=== PATIENT | female | born 1945 | race Caucasian/White ===

== ENCOUNTER → 2019-02-08 07:39 | Outpatient (CLI) | payer MEDICARE, SELFPAY ==
--- NOTE | 2019-02-08 | DI.MG.S_ITS ---
BILATERAL DIGITAL SCREENING MAMMOGRAM 3D/2D WITH CAD: 02/08/2019 CLINICAL: Routine screening. Family history of breast cancer. Comparison is made to exams dated: 11/30/2017 mammogram, 06/16/2017 mammogram, and 12/08/2016 mammogram - [facility]. The tissue of both breasts is heterogeneously dense. This may lower the sensitivity of mammography. Current study was also evaluated with a Computer Aided Detection (CAD) system. No significant masses, calcifications, or other findings are seen in either breast. There has been no significant interval change. IMPRESSION: NEGATIVE There is no mammographic evidence of malignancy. A 1 year screening mammogram is recommended. This exam was interpreted at Station ID: [id number]. NOTE: For mammograms, a report in lay terms will be sent to the patient. Approximately 15% of breast malignancies will not be visualized mammographically. In the management of a palpable breast mass, a negative mammogram must not discourage biopsy of a clinically suspicious lesion. Electronically Signed By: Harleen leone/chucho:02/08/2019 11:53:46 letter sent: Normal Exam ACR BI-RADS Category 1: Negative 3341F
[2019-02-08 08:31] LABS: Add Manual Diff / Slide Review NO; Basophils Absolute Auto 0 /uL (0-100); Basophils Percent Auto 0.4 % (0-2); Eosinophils Absolute Auto 300 /uL (0-450); Eosinophils Percent Auto 5.4 % (2-4); Hematocrit 44.4 % (36-46); Hemoglobin 15.2 g/dL (12.0-16.0); Lymphocytes Absolute Auto 2400 /uL (1100-4500); Lymphocytes Percent Auto 43.1 % (25-40); Mean Corpuscular HGB Conc 34.3 % (30-36); Mean Corpuscular Hemoglobin 32.7 PG (26-34); Mean Corpuscular Volume 95.6 fL (80-100); Monocytes Absolute Auto 600 /uL (0-900); Monocytes Percent Auto 10.4 % (3-14); Neutrophils Absolute Auto 2200 /uL (1500-7000); Neutrophils Percent Auto 40.7 % (50-75); Platelet Count 404 X10^3/uL (150-400); Red Blood Cell Count 4.64 X10^6/uL (4.0-5.2); Red Cell Distribution Width 13.6 % (11.6-14.8); White Blood Cell Count 5.5 X10^3/uL (4.5-11.0)
[2019-02-08 09:42] LABS: Alanine Aminotransferase 21 IU/L (9-52); Albumin 4.7 g/dL (3.5-5.0); Albumin Globulin Ratio 1.6 (1.0-2.8); Alkaline Phosphatase 68 U/L (38-126); Aspartate Aminotransferase 29 IU/L (14-36); BUN Creatinine Ratio 18.6 (6-22); Bilirubin Total 0.8 mg/dL (0.2-1.3); Blood Urea Nitrogen 13 mg/dL (7-17); Calcium 10.2 mg/dL (8.4-10.2); Carbon Dioxide 29 mmol/L (22-32); Chloride 95 mmol/L (98-107); Cholesterol 242 mg/dL (140-199); Estimated Glomerular Filt Rate > 60.0 mL/min (>60); Glucose 89 mg/dL (80-110); HEMOLYSIS < 15 (0-50); Potassium 5.3 mmol/L (3.4-5.1); Sodium 135 mmol/L (137-145); Total Protein 7.7 g/dL (6.3-8.2); Triglycerides 70 mg/dL (35-150)
[2019-02-08 09:52] LABS: HDL Cholesterol 115 mg/dL (40-60); LDL Cholesterol Calculated 113 mg/dL (<100)
[2019-02-08 10:01] LABS: Free T4, Direct Thyroxine 1.06 ng/dL (0.78-2.19)
[2019-02-08 10:15] LABS: Thyroid Stimulating Hormone 2.08 uIU/mL (0.47-4.68)
== END ==
PROVIDERS: Visit Provider Physician Assistant
DX: Z12.31 Encounter for screening mammogram for malignant neoplasm of breast (principal); Z80.3 Family history of malignant neoplasm of breast; E78.5 Hyperlipidemia, unspecified; R00.2 Palpitations
CPT/HCPCS: 36415; 77063; 77067; 80053; 80061; 84439; 84443; 85025

== ENCOUNTER → 2019-04-18 16:07 | Outpatient (CLI) | payer MEDICARE, SELFPAY ==
--- NOTE | 2019-04-18 | DI.RAD.S_ITS ---
PROCEDURE: XR KNEE LT 1TO2V INDICATIONS: ARTHRALGIA LEFT KNEE TECHNIQUE: 2 views of the knee were acquired. COMPARISON: None. FINDINGS: Bones: No fractures or dislocations. No suspicious bony lesions. Scattered degenerative subchondral sclerosis and spurring. . Mild narrowing of the medial and lateral joint spaces. There is severe narrowing of the patellofemoral joint Soft tissues: No joint effusion. No suspicious soft tissue calcifications. IMPRESSION: Left knee joint degeneration as above. Dictated by: Bharat Jolly M.D. on 04/18/2019 at 16:54 Approved by: Bharat Jolly M.D. on 04/18/2019 at 16:55
== END ==
PROVIDERS: PCP Physician Assistant; Visit Provider Internal Medicine
DX: M17.12 Unilateral primary osteoarthritis, left knee (principal)
CPT/HCPCS: 73560

== ENCOUNTER → 2019-06-02 16:24 | Outpatient (CLI) | payer MEDICARE, SELFPAY ==
--- NOTE | 2019-06-02 | DI.RAD.S_ITS ---
PROCEDURE: XR FOOT RT MIN 3V INDICATIONS: Great toe pain, swelling, redness TECHNIQUE: 3 views of the foot were acquired. COMPARISON: None. FINDINGS: Bones: No fractures or dislocations. No suspicious bony lesions. Severe first MTP joint degeneration with prominent dorsal osteophyte formation and sclerosis. There is [id number] appearance. Diffuse interphalangeal joint aeration, most pronounced at the fourth toe. Plantar calcaneal spurring. Soft tissues: No tibiotalar joint effusion. Achilles tendon appears normal. IMPRESSION: Severe first MTP joint degeneration. Prominent dorsal osteophyte formation raising possibility of hallux rigidus. Dictated by: Bharat Jolly M.D. on 06/02/2019 at 17:12 Approved by: Bharat Jolly M.D. on 06/02/2019 at 17:14
== END ==
PROVIDERS: PCP Physician Assistant; Visit Provider Physician Assistant
DX: M79.674 Pain in right toe(s) (principal); M19.071 Primary osteoarthritis, right ankle and foot
CPT/HCPCS: 73630

== ENCOUNTER → 2019-12-12 13:35 | Outpatient (ROUT) | payer MEDICARE, SELFPAY ==
[2019-12-12 14:10] LABS: Add Manual Diff / Slide Review NO; Basophils Absolute Auto 100 /uL (0-100); Basophils Percent Auto 1.3 % (0-2); Eosinophils Absolute Auto 100 /uL (0-450); Hematocrit 43.8 % (36-46); Hemoglobin 14.8 g/dL (12.0-16.0); Lymphocytes Absolute Auto 1200 /uL (1100-4500); Lymphocytes Percent Auto 17.3 % (25-40); Mean Corpuscular HGB Conc 33.7 % (30-36); Mean Corpuscular Hemoglobin 32.3 PG (26-34); Mean Corpuscular Volume 95.9 fL (80-100); Monocytes Absolute Auto 1000 /uL (0-900); Monocytes Percent Auto 14.3 % (3-14); Neutrophils Absolute Auto 4600 /uL (1500-7000); Neutrophils Percent Auto 65.1 % (50-75); Platelet Count 421 X10^3/uL (150-400); Red Blood Cell Count 4.57 X10^6/uL (4.0-5.2); Red Cell Distribution Width 13.6 % (11.6-14.8); White Blood Cell Count 7.1 X10^3/uL (4.5-11.0)
[2019-12-12 14:27] LABS: Alanine Aminotransferase 19 IU/L (<35); Albumin 4.5 g/dL (3.5-5.0); Albumin Globulin Ratio 1.5 (1.0-2.8); Alkaline Phosphatase 91 U/L (38-126); Aspartate Aminotransferase 37 IU/L (14-36); BUN Creatinine Ratio 11.7 (6-22); Bilirubin Total 1.2 mg/dL (0.2-1.3); Blood Urea Nitrogen 7 mg/dL (7-17); Carbon Dioxide 26 mmol/L (22-32); Chloride 96 mmol/L (98-107); Cholesterol 222 mg/dL (140-199); Estimated Glomerular Filt Rate > 60.0 mL/min (>60); Globulin 3.1 g/dL (1.7-4.1); Glucose 106 mg/dL (80-110); HDL Cholesterol 96 mg/dL (40-60); HEMOLYSIS 23 (0-50); LDL Cholesterol Calculated 112 mg/dL (<100); Potassium 4.8 mmol/L (3.4-5.1); Sodium 133 mmol/L (137-145); Total Protein 7.6 g/dL (6.3-8.2); Triglycerides 70 mg/dL (35-150)
[2019-12-12 14:41] LABS: Vitamin D 25 Hydroxy (D3) 47.6 ng/mL (30.0-100.0)
== END ==
PROVIDERS: PCP Physician Assistant; Visit Provider Physician Assistant
DX: E78.5 Hyperlipidemia, unspecified (principal); E55.9 Vitamin D deficiency, unspecified
CPT/HCPCS: 80053; 80061; 82306; 85025

== ENCOUNTER → 2019-12-22 12:58 | Outpatient (CLI) | payer MEDICARE, SELFPAY ==
--- NOTE | 2019-12-22 | DI.MG.S_ITS ---
BILATERAL DIGITAL DIAGNOSTIC MAMMOGRAM 3D/2D: 12/22/2019 CLINICAL: Left nipple inversion. Comparison is made to exams dated: 02/08/2019 mammogram - [facility], 11/30/2017 mammogram, and 06/16/2017 mammogram - [facility]. The tissue of both breasts is heterogeneously dense. This may lower the sensitivity of mammography. There is an equal density asymmetry in the left breast central to the nipple in the retroareolar region. This correlates with area of clinical concern. There is associated nipple inversion without associated architectural distortion. Of note, this asymmetry has waxed and waned in density over the years as well as presence of nipple inversion. No other significant masses, calcifications, or other findings are seen in either breast. IMPRESSION: INCOMPLETE: NEEDS ADDITIONAL IMAGING EVALUATION The equal density asymmetry in the retroareolar left breast is indeterminate. An ultrasound is recommended for further evaluation and is scheduled to immediately follow this study. There is no abnormality seen in the left axilla to correspond with the area of clinical concern and palpable abnormality indicated by triangular marker in the left axilla, however, ultrasound is recommended which is scheduled to immediately follow this examination. This exam was interpreted at Station ID: [id number]. NOTE: For mammograms, a report in lay terms will be sent to the patient. Approximately 15% of breast malignancies will not be visualized mammographically. In the management of a palpable breast mass, a negative mammogram must not discourage biopsy of a clinically suspicious lesion. Electronically Signed By: Luis Quezada M.D. aty/:12/22/2019 14:56:25 ACR BI-RADS Category 0: Incomplete 3340F
--- NOTE | 2019-12-22 | DI.US.S_ITS ---
ULTRASOUND OF LEFT BREAST AND AXILLA: 12/22/2019 CLINICAL: Inverted nipple. Comparison is made to exams dated: 12/22/2019 mammogram, 02/08/2019 mammogram - [facility], 11/30/2017 mammogram, 06/16/2017 mammogram, 12/08/2016 mammogram, and 11/11/2015 mammogram - [facility]. Color flow and real-time ultrasound of the left breast axilla were performed. Castellanos scale images of the real-time examination were reviewed. There is no sonographic abnormality seen central to the nipple in the retroareolar region to correlate with mammographic finding of concern. No disturbed parenchymal echotexture. No significant abnormalities were seen sonographically in the left axilla, specifically at the area of palpable concern. IMPRESSION: PROBABLY BENIGN There is no abnormality seen in the left axilla to correspond with the area of clinical concern and palpable abnormality indicated by triangular marker in the left axilla or in the retroareolar left breast, however, clinical followup is recommended for persistent or worsening symptoms. A follow-up left mammogram and an ultrasound in 6 months is recommended to demonstrate stability. This exam was interpreted at Station ID: [id number]. Electronically Signed By: Luis Quezada M.D. aty/:12/26/2019 23:43:20 letter sent: Followup Recommended Ultrasound BI-RADS: 3 Probably benign
== END ==
PROVIDERS: PCP Physician Assistant; Referring Provider Physician Assistant; Visit Provider Physician Assistant
DX: R92.8 Other abnormal and inconclusive findings on diagnostic imaging of breast (principal); N64.59 Other signs and symptoms in breast
CPT/HCPCS: 76642; 77066; G0279

== ENCOUNTER → 2020-04-27 12:37 | Outpatient (CLI) | payer MEDICARE, SELFPAY ==
--- NOTE | 2020-04-27 | DI.MRI.S_ITS ---
PROCEDURE: MR SHOULDER LT WO CON INDICATIONS: Pain in left arm TECHNIQUE: Noncontrast oblique coronal T2 fast spin echo with fat saturation, oblique sagittal T1 spin echo and T2 fast spin echo with fat saturation, axial T1 spin echo and T2 fast spin echo with fat saturation through the shoulder. COMPARISON: None. FINDINGS: Image quality: Diagnostic. Rotator cuff: There is a moderate size full-thickness tear identified involving the superior aspect of the rotator cuff with a complete or near-complete tear of the supraspinatus tendon it measures approximately 2.6 cm in transverse dimension with retraction of the torn tendon fragments to approximately the tip of the lateral acromion by roughly 2.2 cm. There is associated tendinopathy of the supraspinatus tendon. Atrophy of the supraspinatus muscle is noted. There is also mild infraspinatus muscle atrophy with corresponding thickening in increased signal involving its tendon. There is low-grade partial-thickness tearing extending along the infraspinatus myotendinous junction. The teres minor tendon is intact and otherwise unremarkable. There is mild increased signal evident involving the subscapularis tendon. No significant atrophy of the teres minor or subscapularis muscles is evident. Bones and bursae: No acute fracture or suspicious osseous lesions are identified. There moderate degenerative changes involving the glenohumeral and acromioclavicular joints. There is a large glenohumeral joint effusion acute indicates with a distended subacromial subdeltoid bursa. There is fluid contained within the acromioclavicular joint, which may communicate with the bursa. Areas of synovial hypertrophy of the glenohumeral joint are present. No large intra-articular joint bodies are appreciated. Capsule and soft tissues: Evaluation of the labrum and the glenohumeral ligaments is suboptimal without intra-articular contrast. However, there is diffuse blunting evident involving the entire posterior labrum that is suggestive of chronic labral degeneration. The long head of the biceps tendon is not evident within the bicipital groove and noted to be completely torn and retracted beyond the [id number]. No acute injuries are suspected involving the glenohumeral ligaments. However, thickening of the inferior glenohumeral ligament is suggestive of scarring from previous injury. IMPRESSION: 1. Moderate size full-thickness supraspinatus tendon tear with corresponding retraction and muscle atrophy. 2. Low-grade interstitial/delaminating partial-thickness tear of the infraspinatus tendon with corresponding tendinopathy. 3. Mild subscapularis tendinopathy without significant tearing. 4. Chronic labral degeneration on the posterior aspect of the labrum. 5. Full-thickness tear of the long head of biceps tendon with distal retraction. 6. Moderate degenerative changes of the shoulder joints. 7. Glenohumeral joint effusion communicates with the subacromial subdeltoid bursa through the full-thickness supraspinatus tendon tear. 8. Thickening of the inferior glenohumeral ligament probably represent scarring from previous partial-thickness injury. Dictated by: Taran Davison M.D. on 04/29/2020 at 16:36 Approved by: Taran Davison M.D. on 04/29/2020 at 16:40
== END ==
PROVIDERS: PCP Physician Assistant; Referring Provider Physician Assistant; Visit Provider Physician Assistant
DX: M79.602 Pain in left arm (principal); M75.122 Complete rotator cuff tear or rupture of left shoulder, not specified as traumatic; S46.112A Strain of muscle, fascia and tendon of long head of biceps, left arm, initial encounter; M25.412 Effusion, left shoulder
CPT/HCPCS: 73221

== ENCOUNTER → 2020-06-13 10:02 | Outpatient (CLI) | payer MEDICARE, SELFPAY ==
[2020-06-13 12:03] LABS: Cholesterol 253 mg/dL (140-199); Triglycerides 67 mg/dL (35-150)
[2020-06-13 12:17] LABS: HDL Cholesterol 133 mg/dL (40-60); LDL Cholesterol Calculated 107 mg/dL (<100)
== END ==
PROVIDERS: PCP Physician Assistant; Referring Provider Internal Medicine Cardiovascular Disease; Visit Provider Internal Medicine Cardiovascular Disease
DX: E78.5 Hyperlipidemia, unspecified (principal)
CPT/HCPCS: 36415; 80061

== ENCOUNTER → 2020-06-25 13:18 | Outpatient (CLI) | payer MEDICARE, SELFPAY ==
--- NOTE | 2020-06-25 | DI.US.S_ITS ---
ULTRASOUND OF LEFT BREAST: 06/25/2020 CLINICAL: Left breast 6 month follow-up. Comparison is made to exams dated: 06/25/2020 mammogram, 12/22/2019 ultrasound, 12/22/2019 mammogram, 02/08/2019 mammogram - [facility], 11/30/2017 mammogram, and 06/16/2017 mammogram - [facility]. Real-time ultrasound of the left breast was performed. Castellanos scale images of the real-time examination were reviewed. No significant abnormalities were seen sonographically in the left breast. Patient is asymptomatic on today's examination. IMPRESSION: NEGATIVE There is no sonographic evidence of malignancy. There is no abnormality seen in the left breast to correspond with the retroareolar mammographic finding that likely represents superimposition of nipple and subareolar structures as this finding has waxed and waned in conspicuity over the years. This is consistent with bening finding. Return to annual mammogram screening schedule is recommended which is due in approximately 6 months. The patient was also instructed to return sooner if development of any clinically suspicious findings. This exam was interpreted at Station ID: [id number]. Electronically Signed By: Luis Quezada M.D. aty/:06/25/2020 14:21:49 letter sent: Normal Exam Ultrasound BI-RADS: 1 Negative
--- NOTE | 2020-06-25 | DI.MG.S_ITS ---
UNILATERAL LEFT DIGITAL DIAGNOSTIC MAMMOGRAM 3D/2D SHORT-TERM FOLLOW-UP: 06/25/2020 CLINICAL: Patient returns for a 6 month follow up of the left breast. Comparison is made to exams dated: 12/22/2019 mammogram, 02/08/2019 mammogram - [facility], and 11/30/2017 mammogram - [facility]. The tissue of left breast is heterogeneously dense. This may lower the sensitivity of mammography. Redemonstration of previously described equal density asymmetry in the left breast central to the nipple in the retroareolar region which appears less prominent and was not seen on the prior ultrasound. This finding has waxed and waned in appearance over the years. The patient reports no symptoms today associated with her nipples and previously reported palpable area in the left axilla has completely resolved. No other significant masses or calcifications are seen in the breast. IMPRESSION: INCOMPLETE: NEEDS ADDITIONAL IMAGING EVALUATION The equal density asymmetry in the left breast remains indeterminate. An ultrasound is recommended for further evaluation and is scheduled to immediately follow this study. There is no abnormality seen in the left axilla to correspond with the previous area of clinical concern and palpable abnormality. No palpable areas of concern today. This is consistent with a benign process. This exam was interpreted at Station ID: [id number]. NOTE: For mammograms, a report in lay terms will be sent to the patient. Approximately 15% of breast malignancies will not be visualized mammographically. In the management of a palpable breast mass, a negative mammogram must not discourage biopsy of a clinically suspicious lesion. Electronically Signed By: Luis Quezada M.D. aty/:06/25/2020 14:17:03 ACR BI-RADS Category 0: Incomplete 3340F
== END ==
PROVIDERS: PCP Physician Assistant; Referring Provider Physician Assistant; Visit Provider Physician Assistant
DX: R92.8 Other abnormal and inconclusive findings on diagnostic imaging of breast (principal); N64.89 Other specified disorders of breast
CPT/HCPCS: 76642; 77065; G0279

== ENCOUNTER → 2020-07-26 14:43 | Outpatient (CLI) | payer MEDICARE, SELFPAY ==
--- NOTE | 2020-07-26 14:46 | DI.ECHO.S_ITS ---
[facility] +---------+ : : [address] : : : : [id number] : : : : Phone: [phone]+ Echocardiogram Report + + :Name: SHELLIE POE Study Date: 07/26/2020 Height: 65 in : :[facility] Weight: 130 lb : : Gender: Female BSA: 1.6 m2 : :: 1945 Age: 74 yrs BP: 145/72 mmHg: :Reason For Study: CM : : Performed By: Mihir Hamm : :Referring: JOLATNA LING : + + Interpretation Summary 1) Normal left ventricular thickness, size, wall motion and systolic function (EF 55-60%). 2) Normal right ventricular size and function. 3) No significant valvular abnormalities. 4) No prior Echo available for comparison. Procedure: A two-dimensional transthoracic echocardiogram with color flow and Doppler was performed. The study quality was technically good. There is no prior echocardiogram noted for this patient. The patient was in normal sinus rhythm during the exam. Left Ventricle: The left ventricle is normal in size. There is normal left ventricular wall thickness. The ejection fraction is estimated to be 55-60%. There are no focal wall motion abnormalities. Right Ventricle: The right ventricle is normal in size and function. Atria: The left atrium is mildly dilated. Right atrial size is normal. The interatrial septum is intact with no evidence for an atrial septal defect. Mitral Valve: There is mild mitral annular calcification. There is trace mitral regurgitation. Aortic Valve: The aortic valve is trileaflet. The aortic valve opens well. There is no aortic valve stenosis. No aortic regurgitation is present. Tricuspid Valve: The tricuspid valve is normal in structure and function. There is trace tricuspid regurgitation. The right ventricular systolic pressure is estimated to be at least 25 mmHg based on an estimated right atrial pressure of 3 mm Hg. Pulmonic Valve: The pulmonic valve is normal in structure and function. There is trace pulmonic regurgitation. Great Vessels: The aortic root is normal size. The ascending aorta is at the upper limits of normal in size. The pulmonary artery is normal size. The IVC is of normal diameter and collapses greater than 50% with a sniff. This suggests a low right atrial pressure of 3 mm Hg. Pericardium/ Pleura There is no pericardial effusion. There is no pleural effusion. MMode/2D Measurements & Calculations LVIDd: 4.8 cm LVOT diam: 2.1 cm LVIDs: 3.4 cm Ao root diam: 2.8 cm FS: 29.1 % asc Aorta Diam: 3.7 cm EPSS: 0.48 cm IVSd: 0.89 cm LVPWd: 0.72 cm LV barrientos. diameter/BSA (cm/m^2): 2.9 LV sys. diameter/BSA (cm/m^2): 2.0 LA dimension: 3.4 cm RA long axis: 4.4 cm LA A2 area: 21.2 cm2 RA area: 16.4 cm2 LA A4 area: 17.2 cm2 RA vol: 52.0 ml LA length (vol): 5.1 cm RA : 31.6 ml/m2 LA vol: 60.9 ml IVC diam: 1.0 cm LA vol index: 37.0 ml/m2 TAPSE: 2.0 cm Doppler Measurements & Calculations Ao V2 max: 126.8 cm/sec LVOT Max Immanuel: 80.2 cm/sec Ao V2 mean: 93.8 cm/sec LV V1 max P.6 mmHg Ao max P.4 mmHg LV V1 VTI: 18.4 cm Ao mean P.8 mmHg FLAVIO(I,D): 2.4 cm2 Ao V2 VTI: 26.8 cm FLAVIO(V,D): 2.2 cm2 sev ratio: 0.69 FLAVIO indexed to BSA (cm^2/m^2): 1.4 MV E max immanuel: 72.8 cm/sec TR max immanuel: 235.0 cm/sec MV A max immanuel: 79.5 cm/sec TR max P.1 mmHg MV E/A: 0.92 PA V2 max: 81.9 cm/sec Med Peak E' Immanuel: 4.1 cm/sec PA V2 mean: 61.6 cm/sec E/E' med: 17.7 PA mean P.6 mmHg Lat Peak E' Immanuel: 7.1 cm/sec PA pr(Accel): 15.6 mmHg E/E' lat: 10.3 E/e' average: 14.0 MV dec time: 0.20 sec SV(LVOT): 63.5 ml Reading Physician:11:29 AM
== END ==
PROVIDERS: PCP Physician Assistant; Referring Provider Internal Medicine Cardiovascular Disease; Visit Provider Internal Medicine Cardiovascular Disease
DX: I42.9 Cardiomyopathy, unspecified (principal)
CPT/HCPCS: 93306

== ENCOUNTER → 2021-01-30 10:46 | Outpatient (CLI) | payer MEDICARE, SELFPAY ==
--- NOTE | 2021-01-30 10:46 | DI.MG.S_ITS ---
BILATERAL DIGITAL SCREENING MAMMOGRAM 3D/2D WITH CAD: 01/30/2021 CLINICAL: Routine screening. Family history of breast cancer. Comparison is made to exams dated: 06/25/2020 mammogram, 12/22/2019 mammogram, 02/08/2019 mammogram - [facility], 06/16/2017 mammogram, and 11/11/2015 mammogram - [facility]. The tissue of both breasts is heterogeneously dense. This may lower the sensitivity of mammography. Current study was also evaluated with a Computer Aided Detection (CAD) system. No significant masses, calcifications, or other findings are seen in either breast. There has been no significant interval change. IMPRESSION: NEGATIVE There is no mammographic evidence of malignancy. A 1 year screening mammogram is recommended. This exam was interpreted at Station ID: [id number]. NOTE: For mammograms, a report in lay terms will be sent to the patient. Approximately 15% of breast malignancies will not be visualized mammographically. In the management of a palpable breast mass, a negative mammogram must not discourage biopsy of a clinically suspicious lesion. Electronically Signed By: Paramjit mike/chucho:01/30/2021 12:48:16 letter sent: Normal Exam ACR BI-RADS Category 1: Negative 3341F
== END ==
PROVIDERS: PCP Physician Assistant; Referring Provider Physician Assistant; Visit Provider Physician Assistant
DX: Z12.31 Encounter for screening mammogram for malignant neoplasm of breast (principal); Z80.3 Family history of malignant neoplasm of breast
CPT/HCPCS: 77063; 77067

== ENCOUNTER → 2022-02-03 14:33 | Outpatient (CLI) | payer MEDICARE, SELFPAY ==
--- NOTE | 2022-02-03 | DI.MG.S_ITS ---
BILATERAL DIGITAL SCREENING MAMMOGRAM 3D/2D WITH CAD: 02/03/2022 CLINICAL: Routine screening. Family history of breast cancer. Comparison is made to exams dated: 01/30/2021 mammogram, 12/22/2019 mammogram, 02/08/2019 mammogram, 06/25/2020 mammogram - [facility], and 11/30/2017 mammogram - [facility]. The tissue of both breasts is heterogeneously dense. This may lower the sensitivity of mammography. Current study was also evaluated with a Computer Aided Detection (CAD) system. No significant masses, calcifications, or other findings are seen in either breast. There has been no significant interval change. IMPRESSION: NEGATIVE There is no mammographic evidence of malignancy. A 1 year screening mammogram is recommended. This exam was interpreted at Station ID: [id number]. NOTE: For mammograms, a report in lay terms will be sent to the patient. Approximately 15% of breast malignancies will not be visualized mammographically. In the management of a palpable breast mass, a negative mammogram must not discourage biopsy of a clinically suspicious lesion. Electronically Signed By: Sawyer meza/chucho:02/03/2022 16:53:11 letter sent: Normal Exam ACR BI-RADS Category 1: Negative 3341F
== END ==
PROVIDERS: PCP Physician Assistant; Referring Provider Physician Assistant; Visit Provider Physician Assistant
DX: Z12.31 Encounter for screening mammogram for malignant neoplasm of breast (principal); Z80.3 Family history of malignant neoplasm of breast
CPT/HCPCS: 77063; 77067

== ENCOUNTER → 2022-02-27 14:14 | Outpatient (CLI) | payer MEDICARE, SELFPAY ==
--- NOTE | 2022-02-27 14:33 | DI.RAD.S_ITS ---
PROCEDURE: XR SACRUM COCCYX MIN 2V INDICATIONS: PAIN, RADICULAR,LUMBAR TECHNIQUE: 3 views of the sacrum and coccyx acquired. COMPARISON: [facility], CR, XR LUMBAR SPINE 2-3V, 02/27/2022, 14:24. FINDINGS: Bones: No fractures or dislocations. No suspicious bony lesions. Lower lumbar spine degenerative change and anterolisthesis of L5 on S1. SI joints are symmetric. Mild sclerosis. Soft tissues: Visualized bowel gas pattern is normal. No suspicious soft tissue densities. IMPRESSION: SI joints are symmetric. Moderate degenerative change. Dictated by: Paramjit Feng M.D. on 02/27/2022 at 16:12 Approved by: Paramjit Feng M.D. on 02/27/2022 at 16:14
--- NOTE | 2022-02-27 14:34 | DI.RAD.S_ITS ---
PROCEDURE: XR LUMBAR SPINE 2-3V INDICATIONS: PAIN, RADICULAR,LUMBAR TECHNIQUE: 3 views of the lumbar spine were acquired. COMPARISON: None. FINDINGS: Bones: 5 [id number] vertebrae are present. Anterolisthesis of L5 on S1 measuring 0.4 cm. There is multilevel intervertebral disc space height loss. Small vertebral body osteophytes. L5 facet joint hypertrophy. No vertebral body compression fractures. No suspicious bony lesions. Left hip DJD. Soft tissues: Overlying bowel gas pattern is normal. No suspicious soft tissue calcifications. Arterial vascular calcifications. IMPRESSION: Moderate DDD and degenerative change in the lumbar spine. Dictated by: Paramjit Feng M.D. on 02/27/2022 at 16:09 Approved by: Paramjit Feng M.D. on 02/27/2022 at 16:12
== END ==
PROVIDERS: PCP Physician Assistant; Referring Provider Physician Assistant; Visit Provider Physician Assistant
DX: M51.16 Intervertebral disc disorders with radiculopathy, lumbar region (principal); M51.17 Intervertebral disc disorders with radiculopathy, lumbosacral region; M47.26 Other spondylosis with radiculopathy, lumbar region; M16.12 Unilateral primary osteoarthritis, left hip; M43.17 Spondylolisthesis, lumbosacral region
CPT/HCPCS: 72100; 72220

== ENCOUNTER → 2022-05-22 10:51 | Outpatient (CLI) | payer MEDICARE, SELFPAY ==
[2022-05-22 12:30] LABS: Add Manual Diff / Slide Review NO; Basophils Absolute Auto 100 /uL (0-100); Basophils Percent Auto 1.3 % (0-2); Eosinophils Absolute Auto 100 /uL (0-450); Eosinophils Percent Auto 1.7 % (2-4); Hematocrit 44.1 % (36-46); Hemoglobin 14.9 g/dL (12.0-16.0); Lymphocytes Absolute Auto 1500 /uL (1100-4500); Lymphocytes Percent Auto 24.6 % (25-40); Mean Corpuscular HGB Conc 33.9 % (30-36); Mean Corpuscular Hemoglobin 31.8 PG (26-34); Mean Corpuscular Volume 93.8 fL (80-100); Monocytes Absolute Auto 600 /uL (0-900); Monocytes Percent Auto 10.4 % (3-14); Neutrophils Absolute Auto 3700 /uL (1500-7000); Platelet Count 389 X10^3/uL (150-400); Red Cell Distribution Width 14.5 % (11.6-14.8)
[2022-05-22 12:52] LABS: BUN Creatinine Ratio 24.2 (6-22); Blood Urea Nitrogen 15 mg/dL (7-17); Calcium 9.3 mg/dL (8.4-10.2); Carbon Dioxide 30 mmol/L (22-32); Chloride 97 mmol/L (98-107); Estimated Glomerular Filt Rate > 60 mL/min (>60); Glucose 100 mg/dL (80-110); HEMOLYSIS < 15 (0-50); Hemoglobin A1C% w Est Avg Glu 5.3 % (4.0-6.0); Potassium 4.3 mmol/L (3.4-5.1); Sodium 133 mmol/L (137-145)
== END ==
PROVIDERS: PCP Physician Assistant; Referring Provider Orthopaedic Surgery; Visit Provider Orthopaedic Surgery
DX: R73.9 Hyperglycemia, unspecified (principal); Z01.818 Encounter for other preprocedural examination; Z01.812 Encounter for preprocedural laboratory examination
CPT/HCPCS: 36415; 80048; 83036; 85025; 93005; 93010

== ENCOUNTER → 2022-06-22 10:07 | Outpatient (CLI) | payer MEDICARE, SELFPAY ==
[2022-06-22 11:07] LABS: COVID19 -Nasal RAPID Negative (Negative)
== END ==
PROVIDERS: PCP Physician Assistant; Referring Provider Orthopaedic Surgery; Visit Provider Orthopaedic Surgery
DX: Z20.822 Contact with and (suspected) exposure to COVID-19 (principal)
CPT/HCPCS: 87635; C9803

== ENCOUNTER 2022-06-24 09:19 | Day surgery (SDC) | payer MEDICARE, SELFPAY ==
[2022-06-18 09:27] VITALS: BMI 21.4
[2022-06-24] VITALS (14 sets, daily range): BP systolic 116–158; BP diastolic 59–96; PULSE 56–78; RESP 12–19; TEMP 35.9–37.1; O2SAT 94–100; BMI 21.4
--- NOTE | 2022-06-24 06:00 | DI.RAD.S_ITS ---
PROCEDURE: XR KNEE LT 1TO2V INDICATIONS: TKA TECHNIQUE: 3 views of the knee were acquired. COMPARISON: [facility], , XR KNEE LT 1TO2V, 04/18/2019, 16:13. FINDINGS: Bones: Total knee arthroplasty in good position. Associated postprocedural air present. No fracture. Generalized decreased osseous mineralization present. Soft tissues: No joint effusion. No suspicious soft tissue calcifications. IMPRESSION: Total knee arthroplasty in good position Approved by: Raymond Steward M.D. on 06/24/2022 at 12:23
[2022-06-24] MEDS: LACTATED RINGERS 1,000 ML 42 ML IV ×2 (09:38→12:03)
[2022-06-24] MEDS: ACETAMINOPHEN 325 MG TABLET 975 MG PO (09:44)
[2022-06-24] MEDS: CELECOXIB 200 MG CAPSULE PO (09:45)
--- NOTE | 2022-06-24 10:17 | PM.PREOP ---
Pre-operative Note COVID-19 COVID-19 status: Negative Result date/Date tested (Pos, Neg/Pending): 06/22/22 Interval Note History & Physical reviewed/Exam performed by Physician: Yes Changes to H&P: No
[2022-06-24] MEDS: TRANEXAMIC ACID 1,000 MG VIAL 2000 MG INJ ×2 (11:06→12:11)
[2022-06-24] MEDS: CEFAZOLIN 1 GM VIAL IV (11:18)
--- NOTE | 2022-06-24 11:32 | SUR.OPER ---
Supine on padded OR bed. Pillow under head, arms secured on padded armboards <90 degree abduction. Safety belt across torso. Non-operative leg secured with tape over blanket over lower leg. Operative leg secured in [place] positioner. Foam padded brace at thigh of operative leg. POSITION APPROVED BY SURGEON AND ANESTHESIA
[2022-06-24] MEDS: MORPHINE 4 MG/ML INJ INJ (11:40)
[2022-06-24] MEDS: BUPIVACAINE LIPOSOME 266 MG/20 ML VIAL INJ (11:42)
[2022-06-24] MEDS: BUPIVACAINE 0.25% (PF) 60 ML, EPINEPHrine 0.3 MG INJ (11:43)
--- NOTE | 2022-06-24 12:38 | PM.OP.1 ---
Operative Date/Time/Diagnoses Date of procedure: 06/24/22 Time of procedure: 12:38 Pre-op diagnosis: Left knee osteoarthritis Post-op diagnosis: same Procedure & Clinicians Procedure: Left total knee replacement Same procedure as scheduled: Yes Indications: The patient has had progressively worsening left knee pain with radiographic changes consistent with arthritis. Non-operative management has failed and the patient has requested total knee replacement. The risks, benefits and alternatives to surgery were discussed with the patient prior to proceeding. Risks discussed included, but were not limited to, failure to relieve pain, stiffness, infection, nerve damage, deep venous thrombosis, pulmonary embolism, stroke, coma, heart attack, permanent paralysis and , as well as the potential need for eventual revision of the prosthetic. Surgeon: Joe Tomlinson Agricultural Production Engineer: Romeo Daniels Click Yes if Unassisted: No Anesthesia Type: General, Spinal and Local Operative Notes Findings: Severe patellofemoral osteoarthritis with medial lateral degenerative changes. Closure Type: primary Specimen(s): none sent Prosthetic devices, grafts, tissues, transplants, or devices: Implants used in this procedure were manufactured by the [employer] and included the BCS II Journey total knee replacement with a size 3 left cobalt chromium femur, a size 3 left non porous tibial base plate, a 9 mm cross-linked polyethylene tibial insert and a 29 mm oval Cristela II patella. Applied: implant(s) Estimated Blood Loss (mL): 25 Blood products transfused: none Tourniquet time (min): 44 Procedure in detail: The patient was seen in the pre-operative area, where the left knee was identified as the operative site and this was marked with my initials. The patient received pre-operative antibiotics, and was taken to the operating room and placed on the operative table in the supine position. After satisfactory anesthesia, a multimedia educational specialist out was performed. The left leg was encircled with a tourniquet about the proximal thigh, and the leg was prepared from the toes to the tourniquet with ChloroPrep in the usual fashion and draped through sterile drapes. The leg was elevated and exsanguinated with Eschmark bandage and the tourniquet inflated to 250 mmHg pressure. The knee was approached through an approximately 18 cm incision centered over the patella and carried into the knee through a medial parapatellar arthrotomy. The anterior osteophytes and soft tissues were removed. The rotational landmarks of Hoyt's line and the transepicondylar axis were marked on the femur with electrocautery, and intramedullary guide holes for the femur and tibia were created. The distal femoral cut was made in 6 degrees of valgus using the intramedullary guide at the primary cut setting. The proximal tibial cut was then made using the intramedullary guide, taking 9 mm of bone off the less involved side. The extension gap was checked and the rotation of the femoral component confirmed with the gap balancing blocks. The anterior, posterior and chamfer cuts were then made. The posterior osteophytes and soft tissues were then removed. The posterior capsule was injected with part of a mixture of 60 ml 0.25% Marcaine mixed with 20 ml Exparel and 4 mg of morphine for post-operative pain control. The remainder of this mixture was injected into the capsule and subcutaneous tissues during cement curing. The tibia was prepared with the rotation set by an extra medullary guide. Trial tibial and femoral components were then placed and the intercondylar notch cut through the femoral trial. Range of motion was 0-135 degrees, with good stability throughout the range. The patella was then cut to accommodate the patellar prosthetic. There was no need for a lateral release. The trials were then removed, and the femoral hole plugged with a bone plug. The bone was prepared with pulsatile lavage, and dried with a sponge. Cement was applied and the final prosthetics placed. Excess cement was removed during and after cement curing. After confirming there was no extruded cement posteriorly, the final tibial insert was placed. The knee was copiously irrigated and the tourniquet deflated. Hemostasis was obtained. The capsule was closed with interrupted # 2 polyester sutures. The subcutaneous layer was closed with 3-0 Vicryl, and the skin with a running 3-0 V-Lock suture and Dermabond. An Aquacel Ag dressing was applied and the patient was taken to recovery having tolerated the procedure well. The services of a skilled study assistant were necessary to perform this case in an expedient fashion. Agricultural Production Engineer services were needed for adequate exposure, protection of all normal structures with retractors and assisting with the approach and closure. Complications: none Post-operative Condition: stable Disposition: PACU Plan for aftercare: The patient will be maintained on a standard total knee replacement protocol with weight bearing as tolerated. The patient will receive aspirin and sequential compression devices for DVT prophylaxis. The patient will be discharged home when safe for the home environment.
[2022-06-24] MEDS: LACTATED RINGERS 1,000 ML 100 ML IV (15:35)
[2022-06-24] MEDS: ACETAMINOPHEN 325 MG TABLET 650 MG PO (18:18)
[2022-06-24] MEDS: ASPIRIN EC 81 MG TABLET PO (22:47)
[2022-06-24] MEDS: DOCUSATE 100 MG CAPSULE PO (22:47)
[2022-06-24] MEDS: MELATONIN 3 MG TABLET PO (22:47)
[2022-06-25] MEDS: ACETAMINOPHEN 325 MG TABLET 650 MG PO ×2 (00:13→13:16)
[2022-06-25 04:22] VITALS: BP 139/83; PULSE 82; RESP 18; TEMP 36.6; O2SAT 95
[2022-06-25 07:57] LABS: Hematocrit 38.9 % (36-46); Hemoglobin 13.5 g/dL (12.0-16.0)
--- NOTE | 2022-06-25 09:25 | PT.IIE ---
Current Diagnoses Unilateral primary osteoarthritis, left knee (06/24/22) Synovial cyst of popliteal space [Walker], left knee (06/24/22) Presence of unspecified artificial knee joint (06/24/22) Surgery Performed Operation Date: 06/24/22 10:45 Actual Procedures p Total Knee Arthroplasty(Left) - Joe Tomlinson MD Surgical History (Last Updated 06/18/22 @ 10:14 by Zoe Arrington, RN) History of hysterectomy (10/19/87) Hx of bilateral cataract extraction Hx of LASIK Medical History (Last Updated 06/18/22 @ 14:01 by Zoe Arrington RN) BCC (basal cell carcinoma) Cardiomyopathy Easy bruisability Environmental allergies History of Mohs micrographic surgery for skin cancer Physical Therapy Inpatient Evaluation/Re-Eval M1 PT/OT-IP Prior Functional Status Start: 06/25/22 11:28 Freq: NEEDED Status: Active Protocol: Document 06/25/22 09:25 AB (Rec: 06/25/22 11:35 AB [email or web address]) Medical Review Prior Functional Status Medical History Reviewed Yes Communication able to make needs known Mobility and Gait pt stated that she is independent with all mobilities and ambulation wihtout AD Social History Household Members none Living Arrangements House Number of Floors (Floors) One Floor Number of Stairs To Enter/Railing? no steps to enter Home Environment Standard Height Toilet,Tub/ Shower Home Equipment Front Wheel Walker,Straight Cane,Bedside Commode,Tub Transfer Bench,Grab Bars In Shower Additional Social History Comment pt's friend will stay with her overnight and has other friends who will check on her intermittently throughout the day M2 PT-IP Current Condition Start: 06/25/22 11:28 Freq: NEEDED Status: Active Protocol: Document 06/25/22 09:25 AB (Rec: 06/25/22 11:35 AB [id number]) Physical Therapy Current Condition Current Condition Evaluation Date 06/25/22 Treatment Diagnosis s/p L TKA; difficulty in walking Onset Date 06/24/22 M3 PT-IP Subjective Start: 06/25/22 11:28 Freq: NEEDED Status: Active Protocol: Document 06/25/22 09:25 AB (Rec: 06/25/22 11:35 AB [email or web address]) Subjective Physical Therapy Visit Type Type Initial Evaluation Visit Start Time 09:25 Visit Stop Time 09:50 Total Visit Minutes 25 Number of KAI WHAKARURUHAU Visits 0 M4 PT-IP Mobility and Gait Start: 06/25/22 11:28 Freq: NEEDED Status: Active Protocol: Document 06/25/22 09:25 AB (Rec: 06/25/22 11:35 [email or web address]) PT-Bed Mobility Assessment Supine to Sit Supine to Sit Standby Assistance Sit to Supine Sit to Supine Standby Assistance PT-Transfer Assessment Sit to and From Stand Sit to and from Stand Standby Assistance Equipment Transfer Assistive Device Gait Belt,Front Wheeled Walker Orthotic/Prosthetic Devices or Brace: No Comments Mobility Comments completed supine to sit SBA and able to sit on EOB SBA. completed sit to stand SBA and ambulated in room using FWW SBA. pt requested to go back to bed and stated that chair is not comfortable. completed sit to supine SBA. positioned in bed. call light and table placed within reach. Gait Assessment Gait Gait Assistance Required: Standby Assistance Distance (Feet) 50 Able to Maintain Weight Bearing Status Yes During Gait Assistive Devices Assistive Device Gait Belt,Front Wheeled Walker Orthotic/Prosthetic Devices or Brace: No Gait Deviations General Gait Pattern Decreased Stride Length, Decreased Feet Clearance Factors Limiting Gait Function Factors Limiting Gait Function Decreased Activity Tolerance, Decreased Strength,Limited Range of Motion,Pain,Poor Balance PT-Balance Assessment Sitting Balance and Reactions Static Sitting Balance Ability Normal Dynamic Sitting Balance Ability Normal Standing Balance and Reactions Static Standing Balance Ability Good Dynamic Standing Balance Ability Fair Device Used FWW M5 PT-IP Objective Assessments Start: 06/25/22 11:28 Freq: NEEDED Status: Active Protocol: Document 06/25/22 09:25 AB (Rec: 06/25/22 11:35 [email or web address]) Orientation Orientation/Cognition Level of Alertness Alert Orientation Name,Age,Birthday,Month,Date, Year,Day of Week,Place, Situation Language Function Ability No Deficits Noted Safety Awareness Understands Safety Issues Memory Description No Deficits Noted Gross Range of Motion Lower Extremity ROM Assessment Left Impaired Impairments L knee flexion: 70 deg Strength Lower Extremity Strength Assessment Left Impaired Hip 4-/5 Knee 4-/5 Coordination Assessment Gross Coordination Gross Coordination WNL Sensation Assessment Sensation Gross Sensation WNL Muscle Tone Muscle Tone WNL Yes M6 PT-IP Treatment Start: 06/25/22 11:28 Freq: NEEDED Status: Active Protocol: Document 06/25/22 09:25 AB (Rec: 06/25/22 11:35 [id number]) Physical Therapy Treatment Exercises Exercises Heel Slides Education Education Provided Precautions,Weight Bearing Status,Post-Op Packet,Safety M7 PT-IP Assessment and Plan Start: 06/25/22 11:28 Freq: NEEDED Status: Active Protocol: Document 06/25/22 09:25 AB (Rec: 06/25/22 11:35 [id number]) PT Summary Assessment and Plan Potential Rehabilitation Potential Good Status of Condition at Evaluation Stable Summary Impairments Pain,ROM,Strength,Balance, Coordination,Bed Mobility, Transfers,Gait,Activity Tolerance Assessment Summary pt requiring SBA with mobility using FWW and plans to go home with her friend to assist her. Pt stated that she has outpt PT scheduled. Pt may go home when medically stable. Goals Bed Mobility Goal Independent Transfer Goal Independent,Front Wheeled Walker Gait Goal Independent,Front Wheel Walker Gait Distance 300 Days to Meet Goals 3 Frequency of Treatment Frequency Of Treatment Twice a Day Treatment Plan Physical Therapy Treatment Plan Bed Mobility Training,Transfer Training,Gait Training, Therapeutic Exercise,Balance Retraining,Post Op Education, Discharge Planning,Hot or Cold Pack,Neuromuscular Re-ed, Coordination Retraining,Manual Therapy Weight Bearing Status Weight Bearing Status Weight Bear as Tolerated Allowed Weight Bearing Amount (enter % LLE WBAT or #) (%) Recommendations To Nursing Amount of Assist Needed Standby Assistance Discharge Recommendations PT Discharge Recommendations Home with Assistance, Outpatient PT Transportation Needs at Discharge Private Vehicle
--- NOTE | 2022-06-25 09:27 | P.DS_ITS ---
History of Present Illness History of Present Illness Date Patient Seen: 06/25/22 Time Patient Seen: 09:27 Chief complaint: LT TKA 06/24 Narrative: Operative Date/Time/Diagnoses Date of procedure: 06/24/22 Time of procedure: 12:38 Pre-op diagnosis: Left knee osteoarthritis Post-op diagnosis: same Procedure & Clinicians Procedure: Left total knee replacement Same procedure as scheduled: Yes Indications: The patient has had progressively worsening left knee pain with radiographic changes consistent with arthritis. Non-operative management has failed and the patient has requested total knee replacement. The risks, benefits and alternatives to surgery were discussed with the patient prior to proceeding. Risks discussed included, but were not limited to, failure to relieve pain, stiffness, infection, nerve damage, deep venous thrombosis, pulmonary embolism, stroke, coma, heart attack, permanent paralysis and , as well as the potential need for eventual revision of the prosthetic. Surgeon: Joe Tomlinson Congressional Assistant: Romeo Daniels Click Yes if Unassisted: No Anesthesia Type: General, Spinal and Local Operative Notes Findings: Severe patellofemoral osteoarthritis with medial lateral degenerative changes. Closure Type: primary Specimen(s): none sent Prosthetic devices, grafts, tissues, transplants, or devices: Implants used in this procedure were manufactured by the [employer] and included the BCS II Journey total knee replacement with a size 3 left cobalt chromium femur, a size 3 left non porous tibial base plate, a 9 mm cross-linked polyethylene tibial insert and a 29 mm oval Cristela II patella. Applied: implant(s) Estimated Blood Loss (mL): 25 Blood products transfused: none Tourniquet time (min): 44 Discharge Providers Provider Discharge Date: 06/25/22 Primary care physician: Luzmaria Cuellar PA-C Consults: 06/24/22 13:49 Consult to Discharge Planning Routine Comment: Consult to Physical Therapy Evaluate & Treat Comment: Physician Instructions: postop TKA protocol Discharge provider: Vandana Ritter PA-C Summary Hospital Course Discharge Diagnosis: s/p L TKA Hospital Course: Ms Lam's hospital course was unremarkable. On POD# 1, she was feeling well and wanted to go home. She was eating and voiding without difficulty. Her pain was well-controlled w/ PO medication. She has the help of a friend at home, she has a walker at home, and she has outpt PT scheduled within the week. She was evaluated by PT in the hospital prior to discharge. Exam Vital Signs (past 8 hours): - 06/25/22 04:22 Temperature 97.9 F Pulse Rate 82 Respiratory Rate 18 Blood Pressure 139/83 Pulse Oximetry 95 Oxygen Flow Rate 0 Oxygen Delivery Method Room Air Oxygen Flow Rate 0 Narrative Exam Narrative: 5/5 strength in hip flexors, quadriceps, hamstrings, DF, PF, EHL on left. Sensation to light touch intact in LLE. Calves soft, compressible, nontender and without palpable cords or masses. Aquacel dressing CDI. Objective Labs Result Diagrams: 06/25/22 07:16 Labs: Laboratory Results - last 24 hr 06/25/22 07:16 Hgb 13.5 Hct 38.9 PFSH Medical History (Updated 06/18/22 @ 14:01 by Zoe Arrington RN) BCC (basal cell carcinoma) Cardiomyopathy Easy bruisability Environmental allergies History of Mohs micrographic surgery for skin cancer Surgical History (Updated 06/25/22 @ 09:33 by Vandana Ritter PA-C) History of hysterectomy (10/19/87) Hx of bilateral cataract extraction Hx of LASIK Social History household members: none Smoking Status: Never smoker alcohol intake: current Discharge Assessment & Plan Assessment and Plan Assessment: s/p LEFT total knee arthroplasty Plan of Treatment: D/c home, outpt PT, ASA 81 mg BID for VTE prophylaxis. Discharge Plan Discharge Plan Patient Disposition: Home Discharge orders & Medications Discharge Orders: Discharge (Order); Ordered 06/25/22 Ordered By: Vandana Ritter Prescriptions: New aspirin 81 mg Tablet,Delayed Release (Dr/Ec) 81 mg PO BID Qty: 90 0RF docusate sodium 100 mg Capsule 100 mg PO BID PRN (Reason: constipation) Qty: 60 1RF oxycodone 5 mg Tablet 5 mg PO Q4-6H PRN (Reason: pain, severe) Qty: 60 0RF Continued meloxicam 7.5 mg Tablet 7.5 mg PO DAILY methocarbamol 750 mg Tablet 750 mg PO Q8H PRN (Reason: Pain) Claritin RediTabs 5 mg Tablet,Disintegrating 5 mg PO DAILY melatonin 1 mg Tablet 1 mg PO BEDTIME acetaminophen [Tylenol] 325 mg Tablet 650 mg PO QID PRN (Reason: Pain, Mild) Follow up/Referrals: Luzmaria Cuellar PA-C [Primary Care Provider] - Joe Tomlinson MD [Physician] - As previously scheduled (Follow up w/ Dr Tomlinson on 07/07/2022 @ 2:30 pm at [facility] office in [place].) Diet/Activity/Treatments Diet: Diet as Tolerated Activity: Walk frequently! Cold/Heat Therapy: Ice to knee as needed for pain. Skin/Wound/Dressing Care Report to your healthcare provider any signs of infection, such as:: chills, fever, night sweats, unusual drainage and unusual redness Dressing: May remove ETHAN bandage and shower tomorrow. Leave Aquacel dressing in place until follow up appointment. No bathing or otherwise soaking incision. Visit Report/Discharge Packet Instructions: DI for Knee Replacement Stand Alone Forms: Surgery Discharge Discharge Data Primary Care Provider: Luzmaria Cuellar Attending Provider: Joe Tomlinson Quality VTE Deep Vein Thrombosis/Pulmonary Embolism Present on Admission: No
[2022-06-25] MEDS: ASPIRIN EC 81 MG TABLET PO (09:34)
[2022-06-25] MEDS: MELOXICAM 7.5 MG TABLET PO (09:34)
[2022-06-25] MEDS: OXYCODONE IR 5 MG TABLET PO ×2 (09:34→13:17)
[2022-06-25] MEDS: LORATADINE 10 MG TABLET 5 MG PO (09:35)
[2022-06-25] MEDS: DOCUSATE 100 MG CAPSULE PO (09:35)
--- NOTE | 2022-06-25 11:09 | CM.DANOTE ---
Initials Discharge Planning Note: Case received, EMR reviewed. Met with patient, introduced self and role. Payer: Medicare and AARP PCP: Luzmaria Cuellar 76 year old single female who lives alone in [place] with close friends and neighbors to assist postop. 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 She has necessary DME in place at home. PT to still eval. PA has discharged. Patient anxious to return home. Plan: Return home with friend/neighbor help. A friend to transport her in private vehicle. SEJ Discharge Planning/Care Management CM Discharge Assessment Start: 06/25/22 11:03 Freq: Status: Active Protocol: Document 06/25/22 11:07 (Rec: 06/25/22 11:09 [id number]) Discharge Planning Assessment Assigned Prototype Special Build Giselle Hannon RN/DCP Advance Directives? Yes Advance Directives on File No History Provided By Patient,Medical Record Prior Living Arrangements House Household Members none Type of transporation used prior to Drives own vehicle admit Independent with ADL's Yes Is patient alert and oriented? Yes Caregiver for Another No DME Already Rented / Owned FWW / Walker Comment Adequate DME for dc Barriers to Discharge No Whiteboard Updated in Patient Room with Yes name and ext. # of Prototype Special Build Review Status In Process Next Review Type Continued Stay Review Pre-Anesthesia Assessment Start: 06/18/22 09:27 Freq: Status: Complete Protocol: Document 06/18/22 09:27 [facility] (Rec: 06/18/22 10:57 [facility] [id number]) Pre-Anesthesia Assessment Patient Information Reviewed Via Phone Assessment Assessment Completed With Patient Diagnostic Results BMP/CMP,CBC Comment Labs/ECG @ 05/22/22, COVID screen @ 06/22/22 Primary Care Provider Luzmaria Alisa Seen Specialist in Last 12 Months Yes Specialist Seen Specialty Development Consultant,Fire Engine Operator, Orthopedist Primary Language Romanian Dozer Operator Required No Height 165.1 cm Weight 58.513 kg Body Mass Index (BMI) 21.4 Hearing Ability Normal Visual Assist Contacts,Glasses Dentition Type Teeth, Natural Present Barriers to Learning None Hx Anesthesia Reactions No Hx Family Anesthesia Reaction No Hx Malignant Hyperthermia No Hx Blood Transfusions No Anesthesia Review Requested Yes: PAC Courtesy re: Abnormal pre-op ECG Ambulatory Technologist Yes: No available help at home , friends can check on her, but no overnight help alcohol intake current alcohol intake frequency 3 or more drinks per day Smoking Status Never smoker Substance Use Type does not use Pain Present Pain Reported Musculoskeletal Symptoms Abnormal Gait,Difficulty Walking,Joint Pain History of Falling (Recent or History of Yes ) Patient is completely paralyzed or No completely immobile Mental Status Oriented to own ability Is patient on oxygen? No Does patient have CLAYTON/SOB No Hx Sleep Apnea No Currently Taking a Beta Ankur No Can You Climb a Flight of Stairs Without Yes SOB Hx Chest Pain No Hx SOB No Hx Syncope or Dizziness No Anti-Coagulant Therapy No Has a Specialty Development Consultant Yes: Dr. Ling-last visit 06/02 - follow up prn Cardiac Testing No Hx Pacemaker/ICD No Pacemaker Rep Required? No Cardiac Clearance Received Not Applicable Comment Cardiac records scanned Diet Type At Home Regular dysphagia No Gastrointestinal Symptoms Constipation Urinary Catheter Present No Hx Urinary Self Catheterization No Diabetes No Patient No Lactating No Hx Drug Resistant Organism No Presence of External or Internal Medical Yes: Bilat eye IOLs Devices Have you had any close contact with No someone diagnosed with COVID-19? Received a COVID vaccine? Yes Received all doses? Yes Marital Status Lives With none Prior Living Arrangements House Number of Floors (Floors) One Floor Support System None Does the Patient Have Assistance After No: Friends can check on pt Surgery but no overnight help Patient Discharge Plan Description Return Home Comment Pt advised same day surgery per surgeon Feels Safe in Current Environment Yes Been Physically Hurt or Threatened By a No Person in Current Environment Do you have thoughts of harming yourself None or others? Are you currently considering suicide? No Do you have a plan to hurt yourself or No Plan others? Do You Have Any Spiritual Beliefs That No May Affect Your HC Choices? Do You Have Any Cultural Practices That No May Affect Your HC Choices? Who Can We Speak to About Patient's Care Family, friends Identifying Code for Release of Patient Declines to issue Information Health Care Proxy/Next of Kin Arin Park (ccu nurse/friend) Health Care Proxy Emergency Contact Name Rosalia Weinberg (neighbor/friend) Emergency Contact Advance Directives? Yes Advance Directives on File No Requested Patient Bring Advanced Yes Directives DOS Power of Snap Attacher Yes Power of Snap Attacher Name Arin Park (ccu nurse/friend) Power of Snap Attacher PAC Instructions Do not shave/clip surgical site,Durable medical equipment ,Medications to take/avoid, Nasal antibiotic,No ETOH/ petroleum product on skin DOS, NPO,Post-op transportation,Pre -surgical wash,Sensory aids, Sturdy shoes/comfortable clothes,Do not bring valuables and remove jewelry
== END 2022-06-25 13:48 | disposition home or self-care (01) ==
LOC: OR 09:25 → AC 09:27
PROVIDERS: PCP Physician Assistant; Referring Provider Orthopaedic Surgery; Visit Provider Orthopaedic Surgery
PROC: 0SRD0JZ Replacement of Left Knee Joint with Synthetic Substitute, Open Approach (ICD-10-PCS; CPT 27447; principal; 2022-06-24 10:45)
DX: M17.12 Unilateral primary osteoarthritis, left knee (principal)
CPT/HCPCS: 27447; 36415; 73560; 85014; 85018; 97161; C1776; C1713; C9290; J0171; J0690; J1100; J2250; J2270; J2274; J2405; J2704; J3010

== ENCOUNTER → 2022-12-19 15:36 | Outpatient (CLI) | payer MEDICARE, SELFPAY ==
[2022-06-24 13:57] VITALS: BMI 21.4
--- NOTE | 2022-12-19 15:39 | DI.MRI.S_ITS ---
PROCEDURE: MR SHOULDER RT WO CON INDICATIONS: Strain of muscle, fascia and tendon right arm TECHNIQUE: Noncontrast oblique coronal T2 fast spin echo with fat saturation, oblique sagittal T1 spin echo and T2 fast spin echo with fat saturation, axial T1 spin echo and T2 fast spin echo with fat saturation through the shoulder. COMPARISON: [facility] [place], CR, XR SHOULDER 2+ VIEWS RIGHT, 11/23/2022, 15:57. [facility], MR, MR SHOULDER LT WO CON, 04/27/2020, 12:49. FINDINGS: Image quality: Excellent. Rotator cuff: There is full-thickness tearing of the supraspinatus and infraspinatus tendons from their distal insertion with proximal tendon retraction measuring up to 4.1 cm. Mild atrophy and grade 2-3 fatty infiltration is seen in the supraspinatus and infraspinatus muscles with superimposed low-grade muscle strains. Teres minor tendon remains intact. The subscapularis tendon demonstrates moderate tendinosis and low-grade partial intrasubstance tearing at the distal insertion. No significant subscapularis muscle atrophy. Bones and bursae: No acute trabecular bone injury or fracture. Chronic traction cystic changes are seen at the posterosuperior humeral head and greater tuberosity near the rotator cuff tendon insertions. Humeral head is high riding with narrowing of the acromiohumeral interval to approximately 4 mm. There is mild degenerative spurring in the glenoid rim. Moderate degenerative changes are seen at the acromioclavicular joint with marginal osteophyte formation and mild subchondral cystic changes. There is a medium-sized glenohumeral effusion with moderate synovial hypertrophy, which communicates with a large subacromial/subdeltoid bursal effusion. Capsule and soft tissues: Degeneration and chronic degenerative tearing of the superior to posterior labrum. There is partial intrasubstance tearing of the proximal biceps long head tendon with flattening and mild medial subluxation into the substance of the distal subscapularis tendon. Glenohumeral ligaments are grossly intact. IMPRESSION: 1. Complete tearing of the supraspinatus and infraspinatus tendons from their distal insertions with proximal tendon retraction measuring up to 4.1 cm. Low-grade muscle strains of the supraspinatus and infraspinatus muscles superimposed on chronic mild atrophy and grade 2-3 fatty infiltration. Humeral head is mildly high riding with narrowing of the acromiohumeral interval. 2. Moderate subscapularis tendinosis and low-grade partial intrasubstance tearing at the superior insertion. 3. Partial intrasubstance tearing of the biceps long head tendon, with mild medial subluxation of the tendon relative to the bicipital groove into the substance of the distal subscapularis tendon. 4. Chronic degenerative tearing of the superior to posterior labrum. Mild glenohumeral osteoarthrosis. 5. Moderate acromioclavicular joint osteoarthrosis. 6. Large subacromial/subdeltoid bursal effusion, which communicates with a glenohumeral joint effusion. There is moderate synovial hypertrophy. Approved by: Sawyer Salgado M.D. on 12/21/2022 at 9:23
== END ==
PROVIDERS: PCP Physician Assistant; Referring Provider Orthopaedic Surgery; Visit Provider Orthopaedic Surgery
DX: S46.211A Strain of muscle, fascia and tendon of other parts of biceps, right arm, initial encounter (principal); M75.121 Complete rotator cuff tear or rupture of right shoulder, not specified as traumatic; S43.491A Other sprain of right shoulder joint, initial encounter; M19.011 Primary osteoarthritis, right shoulder; M25.411 Effusion, right shoulder
CPT/HCPCS: 73221

== ENCOUNTER → 2023-02-24 16:05 | Outpatient (CLI) | payer MEDICARE, SELFPAY ==
[2022-06-24 13:57] VITALS: BMI 21.4
--- NOTE | 2023-02-24 | DI.MG.S_ITS ---
BILATERAL DIGITAL SCREENING MAMMOGRAM 3D/2D WITH CAD: 02/24/2023 CLINICAL: Routine screening. Family history of breast cancer. Comparison is made to exams dated: 02/03/2022 mammogram, 01/30/2021 mammogram, 02/08/2019 mammogram, 06/25/2020 mammogram, and 12/22/2019 mammogram - [facility]. Both breasts are heterogeneously dense, which may obscure small masses (category c / 51-75% glandular tissue). Current study was also evaluated with a Computer Aided Detection (CAD) system. No significant masses, calcifications, or other findings are seen in either breast. There has been no significant interval change. IMPRESSION: NEGATIVE There is no mammographic evidence of malignancy. A 1 year screening mammogram is recommended. Based on the Tyrer Cuzick model (a risk assessment model) the patient's lifetime risk is 8.8% and her 10 year risk is 8.8%. According to the ACR, ACS, and NCCN guidelines, an annual breast MRI exam along with mammogram is recommended if the patient's lifetime risk is 20% or greater. This exam was interpreted at Station ID: [id number]. NOTE: For mammograms, a report in lay terms will be sent to the patient. Approximately 15% of breast malignancies will not be visualized mammographically. In the management of a palpable breast mass, a negative mammogram must not discourage biopsy of a clinically suspicious lesion. Electronically Signed By: Paramjit mike/chucho:02/25/2023 12:06:40 letter sent: Normal Exam ACR BI-RADS Category 1: Negative 3341F
== END ==
PROVIDERS: PCP Physician Assistant; Referring Provider Physician Assistant; Visit Provider Physician Assistant
DX: Z12.31 Encounter for screening mammogram for malignant neoplasm of breast (principal); Z80.3 Family history of malignant neoplasm of breast
CPT/HCPCS: 77063; 77067

== ENCOUNTER → 2023-12-06 16:44 | Outpatient (CLI) | payer MEDICARE, SELFPAY ==
[2022-06-24 13:57] VITALS: BMI 21.4
--- NOTE | 2023-12-06 | DI.MRI.S_ITS ---
PROCEDURE: MR SHOULDER RT WO CON INDICATIONS: RIGHT SHOULDER PAIN TECHNIQUE: Noncontrast oblique coronal T2 fast spin echo with fat saturation, oblique sagittal T1 spin echo and T2 fast spin echo with fat saturation, axial T1 spin echo and T2 fast spin echo with fat saturation through the shoulder. COMPARISON: [facility], MR, MR SHOULDER RT WO CON, 12/19/2022, 15:58. FINDINGS: Image quality: Excellent. Rotator cuff: Full-thickness rupture of distal supraspinatus and infraspinatus at their insertions on the humeral head is seen with up to 4.9 cm medial retraction of torn tendon fibers to the level of glenoid. Moderate grade intrasubstance partial-thickness tear involving distal subscapularis is also seen extending to musculotendinous junction. Sagittal images demonstrate moderate supraspinatus muscle atrophy and mild infraspinatus muscle atrophy. Bones and bursae: There is marrow edema involving proximal humeral shaft and humeral head without definite fracture line. Superior migration of humeral head in relation to glenoid is seen. Moderate acromioclavicular joint osteoarthritic changes are seen. Mild to moderate glenohumeral joint osteoarthritic changes also noted. Moderate to large joint effusion and subacromial subdeltoid bursal fluid is seen, no gross intra-articular loose bodies. Capsule and soft tissues: Labrum is grossly intact. The long head of the biceps tendon is not visualized suggestive of torn intra-articular portion of long head of biceps with distal retraction of torn tendon fibers to the level of proximal humeral shaft.. The rotator interval appears normal, without fibrosis. The coracohumeral ligament is normal in thickness. IMPRESSION: 1. Full-thickness rupture of distal supraspinatus and infraspinatus at their insertions on humeral head with up to 4.9 cm medial retraction of torn tendon fibers to the level of glenoid. Moderate grade intrasubstance partial-thickness tear involving distal subscapularis. Moderate supraspinatus muscle atrophy and mild infraspinatus muscle atrophy. 2. Extensive marrow edema throughout proximal right humeral shaft and humeral head without definite fracture line suggestive of bony contusion. Moderate acromioclavicular joint osteoarthritis. Moderate to large joint effusion and subacromial subdeltoid bursal fluid, no gross loose bodies. 3. Suggestion of torn proximal intra-articular portion of long head of biceps with distal retraction of torn tendon fibers along anterior aspect of proximal humeral shaft. 4. No definite focal labral tear. Dictated by: Deep Forte M.D. on 12/07/2023 at 8:28 Approved by: Deep Forte M.D. on 12/07/2023 at 8:47
== END ==
LOC: MRI 16:45
PROVIDERS: PCP Physician Assistant; Referring Provider Physician Assistant; Visit Provider Physician Assistant
DX: M75.121 Complete rotator cuff tear or rupture of right shoulder, not specified as traumatic (principal); M19.011 Primary osteoarthritis, right shoulder; M25.411 Effusion, right shoulder; M25.512 Pain in left shoulder; G89.29 Other chronic pain
CPT/HCPCS: 73221

== ENCOUNTER → 2024-03-04 11:01 | Outpatient (CLI) | payer MEDICARE, SELFPAY ==
[2022-06-24 13:57] VITALS: BMI 21.4
--- NOTE | 2024-03-04 11:03 | DI.MG.S_ITS ---
BILATERAL DIGITAL SCREENING MAMMOGRAM 3D/2D WITH CAD: 03/04/2024 CLINICAL: Routine screening. Family history of breast cancer. Comparison is made to exams dated: 02/24/2023 mammogram, 02/03/2022 mammogram, and 01/30/2021 mammogram - [facility]. Both breasts are heterogeneously dense, which may obscure small masses (category c / 51-75% glandular tissue). Current study was also evaluated with a Computer Aided Detection (CAD) system. No significant masses, calcifications, or other findings are seen in either breast. There has been no significant interval change. IMPRESSION: NEGATIVE There is no mammographic evidence of malignancy. A 1 year screening mammogram is recommended. Based on the Tyrer Cuzick model (a risk assessment model) the patient's lifetime risk is 8.1% and her 10 year risk is 0.0%. According to the ACR, ACS, and NCCN guidelines, an annual breast MRI exam along with mammogram is recommended if the patient's lifetime risk is 20% or greater. This exam was interpreted at Station ID: [id number]. NOTE: For mammograms, a report in lay terms will be sent to the patient. Approximately 15% of breast malignancies will not be visualized mammographically. In the management of a palpable breast mass, a negative mammogram must not discourage biopsy of a clinically suspicious lesion. Electronically Signed By: Luis lynn/chucho:03/04/2024 12:41:15 letter sent: Normal Exam ACR BI-RADS Category 1: Negative 3341F
== END ==
PROVIDERS: PCP Physician Assistant; Referring Provider Physician Assistant; Visit Provider Physician Assistant
DX: Z12.31 Encounter for screening mammogram for malignant neoplasm of breast (principal); R92.333 Mammographic heterogeneous density, bilateral breasts; Z80.3 Family history of malignant neoplasm of breast
CPT/HCPCS: 77063; 77067

== ENCOUNTER → 2024-04-26 16:04 | Outpatient (CLI) | payer MEDICARE, SELFPAY ==
[2022-06-24 13:57] VITALS: BMI 21.4
--- NOTE | 2024-04-26 16:07 | DI.RAD.S_ITS ---
PROCEDURE: XR FOOT LT MIN 3V INDICATIONS: L FOOT PAIN TECHNIQUE: 3 views of the foot were acquired. COMPARISON: None. FINDINGS: Bones: No acute fractures or dislocations. No suspicious bony lesions. Moderate 1st metatarsophalangeal osteoarthrosis. Scattered degenerative changes are seen at the interphalangeal joints of the toes. Possible hammertoe deformities, but not well evaluated on nonweightbearing radiographs. Small calcification adjacent to the 5th metatarsal base likely related to tendinopathy. Small posterior and plantar calcaneal enthesophytes. Soft tissues: There is nonspecific dorsal soft tissue edema, most prominent over the navicular. IMPRESSION: No acute osseous abnormality. Focal soft tissue swelling dorsal to the navicular on lateral view. Consider MRI of the ankle/hindfoot for further evaluation. Approved by: Sawyer Salgado M.D. on 04/27/2024 at 11:57
== END ==
PROVIDERS: PCP Physician Assistant; Referring Provider Physician Assistant; Visit Provider Physician Assistant
DX: M19.072 Primary osteoarthritis, left ankle and foot (principal); M79.672 Pain in left foot; M77.32 Calcaneal spur, left foot
CPT/HCPCS: 73630

== ENCOUNTER → 2024-06-03 11:39 | Outpatient (CLI) | payer MEDICARE, SELFPAY ==
[2022-06-24 13:57] VITALS: BMI 21.4
--- NOTE | 2024-06-03 11:44 | DI.RAD.S_ITS ---
PROCEDURE: XR HAND LT MIN 3V INDICATIONS: ARTHRITIS, THUMB PAIN TECHNIQUE: 3 views of the hand(s) acquired. COMPARISON: None. FINDINGS: Bones: No fractures or dislocations. Carpal bones are normally aligned. No suspicious bony lesions. 1st CMC joint space narrowing with associated osteophytosis and sclerosis. Interphalangeal joint space narrowing with osteophytosis. Soft tissues: No suspicious soft tissue calcifications. 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 Dictated by: Seb Schmidt M.D. on 06/04/2024 at 11:56 Approved by: Seb Schmidt M.D. on 06/04/2024 at 11:57
--- NOTE | 2024-06-03 11:44 | DI.RAD.S_ITS ---
PROCEDURE: XR WRIST LT MIN 3V INDICATIONS: ARTHRITIS, THUMB PAIN TECHNIQUE: 3 views of the wrist were acquired. COMPARISON: None. FINDINGS: Bones: No fractures or dislocations. No suspicious bony lesions. Radiocarpal and carpocarpal joint space narrowing. This is most prominent in the radial carpocarpal joint spaces. Soft tissues: No suspicious soft tissue calcifications. IMPRESSION: Moderate wrist osteoarthritis. Dictated by: Seb Schmidt M.D. on 06/04/2024 at 11:57 Approved by: Seb Schmidt M.D. on 06/04/2024 at 11:58
--- NOTE | 2024-06-03 11:44 | DI.RAD.S_ITS ---
PROCEDURE: XR WRIST RT MIN 3V INDICATIONS: ARTHRITIS, THUMB PAIN TECHNIQUE: 3 views of the wrist were acquired. COMPARISON: None. FINDINGS: Bones: No fractures or dislocations. No suspicious bony lesions. Radiocarpal and carpocarpal joint space narrowing with osteophytosis, most prominent on the radial carpocarpal joint space. Widening of the scapholunate interval. Soft tissues: No suspicious soft tissue calcifications. IMPRESSION: Moderate wrist osteoarthritis. Widening of the scapholunate interval, most consistent with ligamentous injury. Dictated by: Seb Schmidt M.D. on 06/04/2024 at 11:58 Approved by: Seb Schmidt M.D. on 06/04/2024 at 11:59
--- NOTE | 2024-06-03 11:44 | DI.RAD.S_ITS ---
PROCEDURE: XR HAND RT MIN 3V INDICATIONS: ARTHRITIS, THUMB PAIN TECHNIQUE: 3 views of the hand(s) acquired. COMPARISON: None. FINDINGS: Bones: No fractures or dislocations. Carpal bones are normally aligned. No suspicious bony lesions. Interphalangeal joint space narrowing with osteophytosis. 1st CMC joint space narrowing with associated osteophytosis and sclerosis. Soft tissues: No suspicious soft tissue calcifications. IMPRESSION: Mild interphalangeal and 1st CMC osteoarthritis. Dictated by: Seb Schmidt M.D. on 06/04/2024 at 11:57 Approved by: Seb Schmidt M.D. on 06/04/2024 at 11:57
== END ==
PROVIDERS: PCP Physician Assistant; Referring Provider Physician Assistant; Visit Provider Physician Assistant
DX: M18.0 Bilateral primary osteoarthritis of first carpometacarpal joints (principal); M19.041 Primary osteoarthritis, right hand; M19.042 Primary osteoarthritis, left hand; M19.032 Primary osteoarthritis, left wrist; M19.031 Primary osteoarthritis, right wrist; M79.645 Pain in left finger(s)
CPT/HCPCS: 73110; 73130

== ENCOUNTER → 2024-06-27 12:11 | Outpatient (CLI) | payer MEDICARE, SELFPAY ==
[2022-06-24 13:57] VITALS: BMI 21.4
--- NOTE | 2024-06-27 12:15 | DI.RAD.S_ITS ---
PROCEDURE: XR FOOT RT MIN 3V INDICATIONS: RIGHT FOOT PAIN TECHNIQUE: 3 views of the foot were acquired. COMPARISON: [facility], CR, XR FOOT LT MIN 3V, 04/26/2024, 16:06. FINDINGS: Bones: 1st MTP joint space narrowing with bulky osteophytosis. Mild hallux valgus. Hammertoe deformities. Interphalangeal joint space narrowing with osteophytosis. Plantar calcaneal enthesophyte. Soft tissues: No tibiotalar joint effusion. Achilles tendon appears normal. 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 Dictated by: Seb Schmidt M.D. on 06/27/2024 at 15:44 Approved by: Seb Schmidt M.D. on 06/27/2024 at 15:49
== END ==
PROVIDERS: PCP Physician Assistant; Referring Provider Podiatrist; Visit Provider Podiatrist
DX: M19.071 Primary osteoarthritis, right ankle and foot (principal); M20.22 Hallux rigidus, left foot; M79.671 Pain in right foot
CPT/HCPCS: 73630

== ENCOUNTER → 2025-04-07 10:28 | Outpatient (CLI) | payer MEDICARE, SELFPAY ==
[2022-06-24 13:57] VITALS: BMI 21.4
--- NOTE | 2025-04-07 10:29 | DI.MG.S_ITS ---
MM screening mammo BI: 04/07/2025. BI-RADS: 1 CLINICAL: 79-year old female for bilateral screening mammogram. Tyrer-Cuzick lifetime risk of 7.4%. Current reported family history of breast cancer: maternal grandmother and mother. PRIOR EXAMS 03/04/2024, 02/24/2023, 02/03/2022, 01/30/2021. MAMMOGRAPHY TECHNIQUE: 2D and 3D (tomosynthesis) digital mammographic views obtained, with additional images as needed for full coverage. Current study was also evaluated with a Computer Aided Detection (CAD) system. DENSITY C. The breasts are heterogeneously dense, which may obscure small masses. MAMMOGRAPHY FINDINGS Bilateral: No suspicious mass, asymmetry, microcalcification, or other abnormality seen. No significant change from comparison. IMPRESSION: * No evidence of malignancy. RECOMMENDATIONS Bilateral * Annual screening mammography. OVERALL ASSESSMENT CATEGORY BI-RADS-1: Negative. The [employer] recommends annual screening mammography beginning at age 40 for women with average risk of breast cancer. ELECTRONICALLY SIGNED: Sawyer Salgado M.D. on 04/09/2025 at 12:09:58 PM PT Interpreting Station ID: [id number]
== END ==
PROVIDERS: PCP Physician Assistant; Referring Provider Physician Assistant; Visit Provider Physician Assistant
DX: Z12.31 Encounter for screening mammogram for malignant neoplasm of breast (principal); Z80.3 Family history of malignant neoplasm of breast; R92.333 Mammographic heterogeneous density, bilateral breasts
CPT/HCPCS: 77063; 77067